=== PATIENT | male | born 1950 | race Caucasian/White ===

== ENCOUNTER 2017-06-09 19:50 | Inpatient (IN) | payer OTHER ==
[~2017-06-09] VITALS: Ht 188 cm; Wt 91.0 kg
[2017-06-09 20:06] VITALS: BP 110/68; PULSE 72; RESP 20; TEMP 97.7; O2SAT 95
[2017-06-09] MEDS ORDERED: ROSU10 PO (20:06)
[2017-06-09] MEDS ORDERED: TETANUS/DIPHTHERIA TOXOID ADULT 0.5 ML VIAL IM ONE (20:15)
[2017-06-09] MEDS ORDERED: oxyCODONE/ACETAMINOPHEN 10 MG/325 MG TAB PO ONE (20:15)
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
[2017-06-09] MEDS ORDERED: ONDANSETRON ODT 4 MG TAB PO ONE (20:30)
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
[2017-06-09 21:48] VITALS: PULSE 90; RESP 20; O2SAT 100
[2017-06-09 22:21] LABS: AUTOMATED NEUTROPHIL # 16.9 TH/MM3 (1.8-7.7); BASOPHIL % 0.1 % (0.0-2.0); EOSINOPHIL % 0.1 % (0.0-4.0); HEMATOCRIT 43.2 % (39.0-51.0); HEMO FLAGS DIFF FINAL; LYMPH % 7.9 % (9.0-44.0); LYMPHOCYTE # 1.6 TH/MM3 (1.0-4.8); MEAN CELL VOLUME 96.3 FL (80.0-100.0); MEAN CORPUSCULAR HEMOGLOBIN 32.3 PG (27.0-34.0); MEAN CORPUSCULAR HGB CONC 33.6 % (32.0-36.0); MONO % 8.4 % (0.0-8.0); NEUT % 83.5 % (16.0-70.0); PLATELET COUNT 178 TH/MM3 (150-450); RED BLOOD COUNT 4.49 MIL/MM3 (4.50-5.90); RED CELL DISTRIBUTION WIDTH 13.6 % (11.6-17.2); WHITE BLOOD COUNT 20.2 TH/MM3 (4.0-11.0)
[2017-06-09 22:36] VITALS: BP 121/70; PULSE 90; RESP 18; O2SAT 100
[2017-06-09 22:51] LABS: ALT (GPT) 29 U/L (12-78); ANION GAP 9 MEQ/L (5-15); AST (GOT) 30 U/L (15-37); BLOOD UREA NITROGEN 19 MG/DL (7-18); CHLORIDE 108 MEQ/L (98-107); GLOMERULAR FILTRATION RATE 59 ML/MIN (>89); POTASSIUM 3.9 MEQ/L (3.5-5.1); SODIUM (NA) 140 MEQ/L (136-145)
[2017-06-09 22:53] LABS: ALKALINE PHOSPHATASE 72 U/L (45-117); TOTAL BILIRUBIN ADULT 0.3 MG/DL (0.2-1.0)
[2017-06-09] MEDS ORDERED: MORPHINE SULFATE 4 MG/ML INJ IV PUSH ONE (23:00)
[2017-06-09 23:02] VITALS: BP 113/77; PULSE 84; RESP 20; O2SAT 100
[2017-06-09 23:17] VITALS: BP 114/71; PULSE 86; RESP 20; O2SAT 99
[2017-06-09 23:23] VITALS: BP 116/72; PULSE 82; O2SAT 99
[2017-06-10] VITALS: BP 128/78; PULSE 77; RESP 17; TEMP 97.9; O2SAT 97
[2017-06-10] MEDS ORDERED: ONDANSETRON HCL 4 MG/2 ML VIAL IV PUSH PRN (00:15)
[2017-06-10] MEDS ORDERED: NALOXONE HCL 0.4 MG/ML AMP IV PUSH PRN (00:15)
[2017-06-10] MEDS ORDERED: Post-op Orders (for Pharmacy) MISC XX ONE (00:15)
[2017-06-10] MEDS ORDERED: ACETAMINOPHEN/HYDROcodone 325 MG/5 MG TAB PO PRN (00:15)
[2017-06-10] MEDS ORDERED: SODIUM CHLORIDE 0.9% FLUSH 10 ML FLUSH IV FLUSH PRN (00:15)
[2017-06-10] MEDS ORDERED: IOHEXOL 350 MG/ML 10 ML VIAL (for RAD DIAG) IVCONTRAST ONE (00:55)
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
[2017-06-10] MEDS ORDERED: LIDOCAINE 1%/EPINEPHrine 1:100,000 SOLN 50 ML VIAL ONE (01:26)
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
[2017-06-10] MEDS: MORPHINE SULFATE 4 MG/ML INJ IV PUSH PRN ×3 (02:57→10:23)
[2017-06-10 03:45] VITALS: BP 119/77; PULSE 78; RESP 18; TEMP 96.8; O2SAT 98
[2017-06-10] MEDS: SODIUM CHLOR 0.9% 1000 ML INJ 1,000 ML IV SCH ×2 (06:22→10:13)
[2017-06-10] MEDS: METHOCARBAMOL 500 MG TAB PO SCH ×3 (07:13→22:49)
[2017-06-10] MEDS: ACETAMINOPHEN 1000 MG/100 ML 100 ML IV SCH ×3 (07:13→18:16)
[2017-06-10 08:00] VITALS: BP 117/75; PULSE 78; RESP 16; TEMP 97; O2SAT 100
[2017-06-10] MEDS: SODIUM CHLORIDE 0.9% FLUSH 10 ML FLUSH IV FLUSH SCH ×2 (09:00→20:32)
[2017-06-10] MEDS: FAMOTIDINE 20 MG TAB PO SCH ×2 (10:22→20:27)
[2017-06-10] MEDS: DOCUSATE SODIUM 50 MG/SENNA 8.6 MG TAB PO SCH ×2 (10:22→20:27)
[2017-06-10] MEDS: LIDOCAINE HCL 5% PATCH T-DERMAL SCH (10:23)
[2017-06-10 12:00] VITALS: BP 121/79; PULSE 72; RESP 16; TEMP 96.2; O2SAT 98
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
[2017-06-10] MEDS: BACITRACIN TOP OINT 15 GM TUBE TOPICAL SCH ×2 (14:28→20:33)
[2017-06-10] MEDS: ENOXAPARIN SODIUM 40 MG/0.4 ML SYRINGE SQ SCH (15:59)
[2017-06-10 16:00] VITALS: BP 114/77; PULSE 72; RESP 16; TEMP 97.3; O2SAT 99
[2017-06-10] MEDS: GABAPENTIN 300 MG CAP PO SCH (18:16)
[2017-06-10 20:25] VITALS: BP 114/84; PULSE 84; RESP 17; TEMP 96.8; O2SAT 98
[2017-06-10] MEDS: MAGNESIUM HYDROXIDE SUSP 30 ML CUP PO SCH (20:27)
[2017-06-10] MEDS: REMOVE OLD PATCH-LIDOCAINE T-DERMAL SCH (22:52)
[2017-06-11 00:20] VITALS: BP 114/71; PULSE 69; RESP 17; TEMP 96.9; O2SAT 98
[2017-06-11] MEDS: ACETAMINOPHEN 1000 MG/100 ML 100 ML IV SCH ×4 (00:45→13:54)
[2017-06-11 04:20] VITALS: BP 112/76; PULSE 83; RESP 17; TEMP 97.6; O2SAT 98
[2017-06-11] MEDS: METHOCARBAMOL 500 MG TAB PO SCH ×3 (06:02→21:38)
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
[2017-06-11 07:05] LABS: AUTOMATED NEUTROPHIL # 3.9 TH/MM3 (1.8-7.7); BASOPHIL % 0.4 % (0.0-2.0); EOSINOPHIL # 0.1 TH/MM3 (0-0.4); EOSINOPHIL % 0.9 % (0.0-4.0); HEMATOCRIT 32.9 % (39.0-51.0); HEMO FLAGS DIFF FINAL; LYMPH % 21.3 % (9.0-44.0); LYMPHOCYTE # 1.3 TH/MM3 (1.0-4.8); MEAN CELL VOLUME 96.7 FL (80.0-100.0); MEAN CORPUSCULAR HEMOGLOBIN 32.7 PG (27.0-34.0); MEAN CORPUSCULAR HGB CONC 33.9 % (32.0-36.0); MONO % 16.2 % (0.0-8.0); NEUT % 61.2 % (16.0-70.0); PLATELET COUNT 139 TH/MM3 (150-450); RED CELL DISTRIBUTION WIDTH 13.4 % (11.6-17.2); WHITE BLOOD COUNT 6.3 TH/MM3 (4.0-11.0)
[2017-06-11 07:23] VITALS: BP 112/72; PULSE 69; RESP 18; TEMP 96.7; O2SAT 98
[2017-06-11 07:39] LABS: ALKALINE PHOSPHATASE 70 U/L (45-117); ALT (GPT) 152 U/L (12-78); ANION GAP 5 MEQ/L (5-15); AST (GOT) 133 U/L (15-37); BLOOD UREA NITROGEN 14 MG/DL (7-18); CHLORIDE 104 MEQ/L (98-107); GLOMERULAR FILTRATION RATE 84 ML/MIN (>89); POTASSIUM 4.1 MEQ/L (3.5-5.1); SODIUM (NA) 137 MEQ/L (136-145); TOTAL BILIRUBIN ADULT 0.8 MG/DL (0.2-1.0)
[2017-06-11] MEDS: FAMOTIDINE 20 MG TAB PO SCH ×2 (08:08→21:38)
[2017-06-11] MEDS: LACTULOSE SYRUP 20 GM/30 ML CUP PO SCH (08:08)
[2017-06-11] MEDS: GABAPENTIN 300 MG CAP PO SCH ×2 (08:08→13:52)
[2017-06-11] MEDS: DOCUSATE SODIUM 50 MG/SENNA 8.6 MG TAB PO SCH ×2 (08:08→21:38)
[2017-06-11] MEDS: LIDOCAINE HCL 5% PATCH T-DERMAL SCH (08:09)
[2017-06-11] MEDS: SODIUM CHLORIDE 0.9% FLUSH 10 ML FLUSH IV FLUSH SCH ×2 (08:09→21:00)
[2017-06-11] MEDS: ATORVASTATIN 20 MG TAB PO SCH (08:10)
[2017-06-11] MEDS: BACITRACIN TOP OINT 15 GM TUBE TOPICAL SCH ×2 (08:11→21:00)
[2017-06-11 11:55] VITALS: BP 118/78; PULSE 75; RESP 18; TEMP 96.3; O2SAT 99
[2017-06-11] MEDS: ENOXAPARIN SODIUM 40 MG/0.4 ML SYRINGE SQ SCH (13:52)
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
--- NOTE | 2017-06-11 14:55 | RADRPT ---
EXAM DATE/TIME: 06/11/2017 15:03 [facility] COMPARISON: CHEST SINGLE AP, June 11, 2017, 6:13. INDICATIONS : Pneumothorax. MEDICAL HISTORY : Rib fractures. SURGICAL HISTORY : Chest tube, left. ENCOUNTER: Initial ACUITY: 1 day PAIN SCORE: Non-responsive. LOCATION: Left chest FINDINGS: Left chest drainage tube tip remains projected in the medial left upper chest. No residual pneumotho rax on the left side. Stable appearance to multiple displaced left upper rib fractures and left clav icular fracture. Some patchy areas of opacity at the left base obscured portion lateral left hemidia phragm. Stable left pleural effusion. Right lung is clear. The heart is normal size. CONCLUSION: Stable appearance to left chest when compared to prior. No pneumothorax seen. Left chest drainage t ube unchanged. Patchy left basilar infiltrates stable. Tree Rogers MD on June 11, 2017 at 14:52 Board Certified Radiologist. This report was verified electronically.
[2017-06-11 15:15] VITALS: BP 115/71; PULSE 83; RESP 18; TEMP 95.9; O2SAT 99
[2017-06-11] MEDS: GABAPENTIN 400 MG CAP PO SCH (18:04)
[2017-06-11 20:00] VITALS: BP 130/77; PULSE 84; RESP 17; TEMP 97.1; O2SAT 98
[2017-06-11] MEDS: REMOVE OLD PATCH-LIDOCAINE T-DERMAL SCH (21:00)
[2017-06-11] MEDS: MAGNESIUM HYDROXIDE SUSP 30 ML CUP PO SCH (21:38)
[2017-06-12] VITALS: BP 119/73; PULSE 74; RESP 16; TEMP 97.9; O2SAT 96
[2017-06-12] MEDS: METHOCARBAMOL 500 MG TAB PO SCH ×3 (05:18→21:25)
[2017-06-12 05:51] LABS: AUTOMATED NEUTROPHIL # 4.9 TH/MM3 (1.8-7.7); BASOPHIL % 0.4 % (0.0-2.0); EOSINOPHIL # 0.1 TH/MM3 (0-0.4); EOSINOPHIL % 0.8 % (0.0-4.0); HEMATOCRIT 32.5 % (39.0-51.0); HEMO FLAGS DIFF FINAL; LYMPH % 22.4 % (9.0-44.0); LYMPHOCYTE # 1.8 TH/MM3 (1.0-4.8); MEAN CELL VOLUME 96.7 FL (80.0-100.0); MEAN CORPUSCULAR HEMOGLOBIN 33.1 PG (27.0-34.0); MEAN CORPUSCULAR HGB CONC 34.2 % (32.0-36.0); NEUT % 62.4 % (16.0-70.0); PLATELET COUNT 141 TH/MM3 (150-450); RED BLOOD COUNT 3.36 MIL/MM3 (4.50-5.90); RED CELL DISTRIBUTION WIDTH 13.2 % (11.6-17.2); WHITE BLOOD COUNT 7.9 TH/MM3 (4.0-11.0)
[2017-06-12 06:09] LABS: ALT (GPT) 102 U/L (12-78); ANION GAP 5 MEQ/L (5-15); AST (GOT) 68 U/L (15-37); BLOOD UREA NITROGEN 12 MG/DL (7-18); CHLORIDE 103 MEQ/L (98-107); GLOMERULAR FILTRATION RATE 82 ML/MIN (>89); POTASSIUM 3.7 MEQ/L (3.5-5.1); SODIUM (NA) 139 MEQ/L (136-145)
[2017-06-12 06:11] LABS: ALKALINE PHOSPHATASE 66 U/L (45-117); TOTAL BILIRUBIN ADULT 0.6 MG/DL (0.2-1.0)
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
[2017-06-12 08:00] VITALS: BP 125/80; PULSE 90; RESP 20; TEMP 95.6; O2SAT 97
[2017-06-12] MEDS ORDERED: MAGNESIUM CITRATE SOLN 300 ML BTL PO ONE (08:00)
[2017-06-12] MEDS: LIDOCAINE HCL 5% PATCH T-DERMAL SCH (08:08)
[2017-06-12] MEDS: LACTULOSE SYRUP 20 GM/30 ML CUP PO SCH (08:08)
[2017-06-12] MEDS: GABAPENTIN 400 MG CAP PO SCH ×3 (08:08→18:23)
[2017-06-12] MEDS: DOCUSATE SODIUM 50 MG/SENNA 8.6 MG TAB PO SCH ×2 (08:08→21:25)
[2017-06-12] MEDS: SODIUM CHLORIDE 0.9% FLUSH 10 ML FLUSH IV FLUSH SCH (09:00)
[2017-06-12 12:00] VITALS: BP 127/73; PULSE 81; RESP 20; TEMP 97.6; O2SAT 98
[2017-06-12] MEDS: ENOXAPARIN SODIUM 40 MG/0.4 ML SYRINGE SQ SCH (13:53)
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
--- NOTE | 2017-06-12 15:11 | RADRPT ---
EXAM DATE/TIME: 06/12/2017 15:02 [facility] COMPARISON: CHEST SINGLE AP, June 12, 2017, 5:53. INDICATIONS : Short of breath, evaluate for left pneumothorax and left chest chest tube MEDICAL HISTORY : left rib fractures SURGICAL HISTORY : chest tube ENCOUNTER: Subsequent ACUITY: 2 days PAIN SCORE: 6/10 LOCATION: Left chest FINDINGS: A single portable frontal view the chest shows a left thoracostomy tube. No pneumothorax. Hypoinflati on with minimal bibasilar atelectasis. No discernible pneumothorax. Multiple left-sided rib fractures . Calcified granulomas on the right. Heart is normal in size for a small hiatal hernia. CONCLUSION: Left chest tube without pneumothorax. Tree Chandra Jr., MD on June 12, 2017 at 14:58 Board Certified Radiologist. This report was verified electronically.
[2017-06-12 15:49] VITALS: BP 140/92; PULSE 84; RESP 20; TEMP 96.1; O2SAT 99
[2017-06-12] MEDS: KETOROLAC TROMETHAMINE 30 MG/ML (IVP) VIAL IV PUSH SCH ×2 (16:22→16:23)
[2017-06-12 18:59] VITALS: BP 120/75; PULSE 88; RESP 16; TEMP 97.6; O2SAT 95
[2017-06-12] MEDS: MAGNESIUM HYDROXIDE SUSP 30 ML CUP PO SCH (21:00)
[2017-06-12] MEDS: REMOVE OLD PATCH-LIDOCAINE T-DERMAL SCH (21:00)
[2017-06-12] MEDS: FAMOTIDINE 20 MG TAB PO SCH (21:25)
[2017-06-12] MEDS: BACITRACIN TOP OINT 15 GM TUBE TOPICAL SCH (21:27)
[2017-06-13] VITALS: BP 114/70; PULSE 87; RESP 17; TEMP 96.9; O2SAT 93
[2017-06-13] MEDS: KETOROLAC TROMETHAMINE 30 MG/ML (IVP) VIAL IV PUSH SCH ×3 (00:07→12:27)
[2017-06-13] MEDS: METHOCARBAMOL 500 MG TAB PO SCH ×2 (06:47→12:26)
[2017-06-13] MEDS: FAMOTIDINE 20 MG TAB PO SCH (08:07)
[2017-06-13] MEDS: GABAPENTIN 400 MG CAP PO SCH ×2 (08:07→12:26)
[2017-06-13] MEDS: DOCUSATE SODIUM 50 MG/SENNA 8.6 MG TAB PO SCH (08:08)
[2017-06-13] MEDS: LACTULOSE SYRUP 20 GM/30 ML CUP PO SCH (08:09)
[2017-06-13 08:10] VITALS: BP 111/69; PULSE 78; RESP 16; TEMP 96.6; O2SAT 94
[2017-06-13] MEDS: ATORVASTATIN 20 MG TAB PO SCH (08:12)
[2017-06-13] MEDS: LIDOCAINE HCL 5% PATCH T-DERMAL SCH (08:13)
[2017-06-13] MEDS: BACITRACIN TOP OINT 15 GM TUBE TOPICAL SCH (08:14)
--- NOTE | 2017-06-13 08:25 | RADRPT ---
EXAM DATE/TIME: 06/13/2017 07:22 [facility] COMPARISON: CHEST SINGLE AP, June 12, 2017, 15:02. INDICATIONS : Shortness of breath. MEDICAL HISTORY : None. SURGICAL HISTORY : None. ENCOUNTER: Subsequent ACUITY: 3 days PAIN SCORE: Non-responsive. LOCATION: Bilateral chest FINDINGS: The heart is stable. Bibasilar streakiness is noted consistent with atelectasis and/or infiltrates. Clinical correlation is recommended. Granulomatous changes are noted within the right lung. The le ft chest tube has been removed. There is no residual pneumothorax. Mild degenerative changes and sc oliosis of the thoracic spine are noted. There are stable multiple fractures involving the left uppe r posterior rib cage. CONCLUSION: 1. No evidence of residual pneumothorax status post removal of left chest tube. 2. Bibasilar atelectasis and/or minimal infiltrates. 3. Degenerative changes and mild scoliosis of the thoracic spine. Elmer Zaragoza MD on June 13, 2017 at 7:19 Board Certified Radiologist. This report was verified electronically.
[2017-06-13 08:31] VITALS: BP 113/49; PULSE 80; RESP 16; TEMP 98.3; O2SAT 96
[2017-06-13] MEDS: SODIUM CHLORIDE 0.9% FLUSH 10 ML FLUSH IV FLUSH SCH (09:00)
[2017-06-13 09:09] VITALS: RESP 16
[2017-06-13] MEDS ORDERED: METH500T3 PO (11:25)
[2017-06-13] MEDS ORDERED: NEUR400C PO (11:25)
[2017-06-13] MEDS ORDERED: PERC5TAB12 PO (11:25)
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
== END 2017-06-13 14:17 | disposition home or self-care (01) | DRG 200 ==
LOC: NEPD 19:50 → NEDA 21:31 → N06A 06-10 00:01
PROVIDERS: ADMIT Surgery; ATTEND Surgery
PROC: 0W9B30Z Drainage of Left Pleural Cavity with Drainage Device, Percutaneous Approach (ICD-10-PCS; principal; 2017-06-10)
DX: S27.0XXA Traumatic pneumothorax, initial encounter (principal); S22.42XA Multiple fractures of ribs, left side, initial encounter for closed fracture; S27.321A Contusion of lung, unilateral, initial encounter; S00.81XA Abrasion of other part of head, initial encounter; S40.812A Abrasion of left upper arm, initial encounter; E78.5 Hyperlipidemia, unspecified; M25.552 Pain in left hip; V28.4XXA Motorcycle driver injured in noncollision transport accident in traffic accident, initial encounter; Y92.410 Unspecified street and highway as the place of occurrence of the external cause
CPT/HCPCS: 70450; 71010; 71260; 72125; 73010; 74177; 80053; 85025; 90471; 90714; 94150; J0131; J1650; J1885; J2270; J2405; J7030; Q9967